=== PATIENT | female | born 1940 | race Caucasian/White ===

== ENCOUNTER 2022-01-11 16:06 | Emergency (ER) | payer MEDICARE, OTHER, SELFPAY ==
[2022-01-11 16:14] VITALS: BP 174/82; PULSE 79; RESP 18; TEMP 36.4; O2SAT 95; BMI 19.9
--- NOTE | 2022-01-11 16:18 | DI.RAD.S_ITS ---
PROCEDURE: XR WRIST LT MIN 3V INDICATIONS: Fall TECHNIQUE: 4 views of the wrist were acquired. COMPARISON: None. FINDINGS: Bones: Chronic appearing ulnar styloid process avulsion fracture. No acute fractures or dislocations. No suspicious bony lesions. Scaphoid view: Scaphoid is intact. Soft tissues: No suspicious soft tissue calcifications. IMPRESSION: No acute fracture. No acute osseous lesion. If symptoms and/or clinical suspicion for pathology persists, further assessment with repeat radiographs (7-10 days) or advanced imaging (e.g. CT, MRI or bone scan) should be considered. Dictated by: Princess Morejon MD, PhD on 01/11/2022 at 16:43 Approved by: Princess Morejon MD, PhD on 01/11/2022 at 16:45
--- NOTE | 2022-01-11 16:57 | ED_ITS ---
HPI - Extremity Injury (Upper) General Chief Complaint: Extremity Injury, Upper Stated Complaint: left wrist injury, fall Time Seen by Provider: 01/11/22 16:54 Source: patient Mode of arrival: Ambulatory History of Present Illness HPI narrative: 81-year-old female nonsmoker with noncontributory medical history presents with a chief complaint of left wrist pain after a fall. She was walking at [employer] school when she tripped and fell, landing on an outstretched left wrist that can be worse with motion and improves with rest. She has no numbness, tingling or weakness. She denies head injury or neck pain. She is otherwise well and free of complaint. She denies prodromal symptoms such as dizziness, weakness, chest pain or other. Related Data Allergies Allergy/AdvReac Type Severity Reaction Status Date / Time No Known Drug Allergies Allergy Verified 01/11/22 16:18 Review of Systems Review of Systems Narrative: GENERAL: Denies chills, fatigue, malaise, fever, sweats. HEENT: Denies sinus pain, ear pain, sore throat, difficulty swallowing, dizziness. RESPIRATORY: Denies dyspnea, cough, wheezing, hemoptysis, sputum. CARDIOVASCULAR: Denies chest pain, palpitations, orthopnea, edema, GASTROINTESTINAL: Denies nausea, vomiting, abdominal pain, diarrhea, constipation, melena. : Denies dysuria, frequency, incontinence, hematuria, urinary retention. MUSCULOSKELETAL: see HPI SKIN: Denies rash, skin lesions, or other NEUROLOGIC: Denies weakness, headache, numbness, change in speech, confusion, seizures, incoordination. PSYCHIATRIC: No concerning psychosocial issues. 12 point review of systems is negative except for those stated above Patient History Social History Smoking Status: Never smoker Smoking Status: Never smoker alcohol intake frequency: 0-2 drinks per day Substance Use Type: does not use Exam Narrative Exam Narrative: GEN: AOx3 and in mild distress EYES: Pupils are equal, round, and reactive to light and accommodation. Extrao ccular muscles are intact bilaterally. There is no subconjunctival hemorrhage or exudate. CHEST: Lungs are clear to auscultation bilaterally and free of wheezes, rales, or rhonchi. Heart rate is regular rhythm, there are no murmurs, clicks, rubs, or gallops. There is no chest wall tenderness. ABD: Abdomen is soft and nontender. There is no guarding or rebound. Bowel sounds are normal in all 4 quadrants. There is no mass or organomegaly. EXT: Full, but painful ROM of left wrist overlying ulnar styloid. Pain on palpation. Closed, isolated, and NV in tact SKIN: Warm, pink, and dry. No erythema or rash Initial Vital Signs Initial Vital Signs: Vital Signs Temperature 97.6 F 01/11/22 16:14 Pulse Rate 79 01/11/22 16:14 Respiratory Rate 18 01/11/22 16:14 Blood Pressure 174/82 H 01/11/22 16:14 Pulse Oximetry 95 01/11/22 16:14 Oxygen Delivery Method 01/11/22 16:14 Procedures Orthopedic Splinting/Casting Injury #1: Side: left Upper Extremity Injury Location: wrist Upper Extremity Immobilizer: wrist splint Post splinting neuro exam: intact Post splinting vascular exam: intact Placed by: Nursing Course Orders Ordered: ED Orders 01/11/22 16:18 XR wrist LT min 3V Stat Vital Signs Vital signs: Vital Signs - 8 hr 01/11/22 16:14 Temperature 97.6 F Pulse Rate 79 Respiratory Rate 18 Blood Pressure 174/82 H Pulse Oximetry 95 Oxygen Delivery Method Room Air MDM - Extremity Injury (Upper) Imaging Data Extremity x-ray #1: Radiologist's Impression: Close Wrist X-Ray (Signed) Princess Morejon - 01/11/22 [address]?[place] [address] XRay Report Signed Patient: Tabby Johnston MR#: [id number] : 1940 Acct:[id number] Age/Sex: 81 / F Date of Service: 01/11/22 Loc: ED Accession Number: [id number] ?? Procedure: XR wrist LT min 3V Ordering Provider: Dale Talavera D.O. PROCEDURE:? XR WRIST LT MIN 3V ? INDICATIONS: Fall ? TECHNIQUE:? 4 views of the wrist were acquired.? ? COMPARISON:? None. ? FINDINGS:? ? Bones:? Chronic appearing ulnar styloid process avulsion fracture.? No acute fractures or dislocations.? No suspicious bony lesions.? ? Scaphoid view:? Scaphoid is intact. ? Soft tissues:? No suspicious soft tissue calcifications.? ? IMPRESSION:? No acute fracture. No acute osseous lesion. If symptoms and/or clinical suspicion for pathology persists, further assessment with repeat radiographs (7- 10 days) or advanced imaging (e.g. CT, MRI or bone scan) should be considered. ? ? Dictated by: Princess Morejon MD, PhD on 01/11/2022 at 16:43 ? ? Approved by: Princess Morejon MD, PhD on 01/11/2022 at 16:45 ? Discharge Plan Departure Patient Disposition: Home Clinical Impression: Contusion of dorsum of wrist Instructions: DI for Wrist Sprain Activity Restrictions/Additional Instructions: *You have been diagnosed with [ fall with wrist injury] *What to do: *Please continue to take your regular medications as directed. [ ] New medication prescriptions sent to your pharmacy: [ ] [ ] New medication written as a paper prescription [x] Tylenol and occasional Motrin for pain *Please follow up with [ Kayleigh] of [facility] in 2-3 days, call for an appointment. Let them know you were seen in the Emergency Department and that we ask that you be seen in follow up. We will electronically transmit a record of today's note if your PCP is in our system *Return to Emergency Department if you should have any new, worsening or concerning symptoms, such as [worsening pain, significant swelling, cold extremities, numbness, tingling, weakness or other bothersome symptoms Splint Care: Keep splint clean and dry. Elevated affected body part to decrease swelling. OK to use ice pack on the affected body part. Use for 15-20 minutes each time, for 5-6x per day. If you develop worsening pain, numbness, tingling, discoloration of the affected body part, loosen the splint by loosening the MARILYN wrap, and either see your doctor for an urgent re-assessment, or return to the Emergency Department. Return to the Emergency Department for any new or worsening symptoms. Referrals: Magali Victor MD [Physician] -
[2022-01-11 18:01] VITALS: BP 149/83; PULSE 68; RESP 18; O2SAT 96
== END 2022-01-11 18:02 | disposition home or self-care (01) ==
PROVIDERS: Emergency Provider Emergency Medicine
DX: S60.212A Contusion of left wrist, initial encounter (principal); W01.0XXA Fall on same level from slipping, tripping and stumbling without subsequent striking against object, initial encounter
CPT/HCPCS: 29125; 73110; 99283